=== PATIENT | female | born 1960 | race Hispanic/Latino ===

== ENCOUNTER 2017-05-15 05:57 | Day surgery (SDC) | payer BC ==
[~2017-05-15] VITALS: Ht 154.9 cm; Wt 83.9 kg
[~2017-05-15 05:57] MED LIST: BACTRIM DS1 TAB PO; CIPRO500 MG OR; CIPROFLOXACN500 MG PO; KEFLEX500 M1 PO; LEVOTHROID50 MCG PO; LEVOTHYROXIN75 MCG PO; LIPITOR10 M1 PO; LORTAB 7.5 PO; MEDDOSEPAK PO; MUCINEX D1 TAB PO; PHENTERMINE H37.5 MG PO; PRAVASTATIN20 MG PO; PROLIA SC; ROBITUSSIN AC10 ML PO; STERAPRED DS10 MG OR; XGEVA SC; [UNRECOGNIZED DRUG - OTHER]
[2017-05-15 08:44] VITALS: BP 113/58
== END 2017-05-15 09:03 | disposition home or self-care (01) | DRG 951 ==
LOC: ORM 05:57
PROVIDERS: ATTEND Surgery
PROC: 0DB68ZX Excision of Stomach, Via Natural or Artificial Opening Endoscopic, Diagnostic (ICD-10-PCS; principal; 2017-05-15)
PROC: 0DJD8ZZ Inspection of Lower Intestinal Tract, Via Natural or Artificial Opening Endoscopic (ICD-10-PCS; 2017-05-15)
DX: Z12.11 Encounter for screening for malignant neoplasm of colon (principal); R13.10 Dysphagia, unspecified; R11.10 Vomiting, unspecified; K29.50 Unspecified chronic gastritis without bleeding; K31.7 Polyp of stomach and duodenum; K25.9 Gastric ulcer, unspecified as acute or chronic, without hemorrhage or perforation; K64.8 Other hemorrhoids; E78.00 Pure hypercholesterolemia, unspecified; E03.9 Hypothyroidism, unspecified

== ENCOUNTER 2017-06-28 15:58 | Emergency (ER) | payer BC ==
[~2017-06-28] VITALS: Ht 154.9 cm; Wt 87.6 kg
[2017-06-28] MEDS ORDERED: PSEUDOEPHEDRINE30 MG PO (16:30)
[2017-06-28 17:01] LABS: INFLUENZA A NONE DETECTED (NONE DETECT); INFLUENZA B NONE DETECTED (NONE DETECT)
[2017-06-28] MEDS ORDERED: PROVENTIL HFA IN (17:11)
[2017-06-28] MEDS ORDERED: LEVAQUIN500 MG PO (17:11)
[2017-06-28] MEDS ORDERED: MEDDOSEPAK PO (17:11)
[2017-06-28 17:29] VITALS: BP 136/78
== END 2017-06-28 17:31 | disposition home or self-care (01) | DRG 153 ==
LOC: ED 15:58
PROVIDERS: Emergency Medicine
DX: J32.0 Chronic maxillary sinusitis (principal); J06.9 Acute upper respiratory infection, unspecified; R05 Cough; R50.9 Fever, unspecified; R09.81 Nasal congestion

== ENCOUNTER → 2018-06-05 | Outpatient (REF) | payer BC ==
[~2018-06-05] MED LIST changes: +LEVAQUIN500 MG PO; +PROVENTIL HFA IN; +PSEUDOEPHEDRINE30 MG PO
== END | disposition home or self-care (01) | DRG 552 ==
LOC: DI 12:11
PROVIDERS: ATTEND Nurse Practitioner Family
DX: M54.5 Low back pain (principal)

== ENCOUNTER 2020-01-07 08:27 | Emergency (ER) | payer BC ==
[~2020-01-07] VITALS: Ht 154.9 cm; Wt 90.0 kg
[2020-01-07] MEDS ORDERED: HYDROCO/APAP1 TA9 PO (09:46)
[2020-01-07] MEDS ORDERED: MOTRIN400 MG PO (09:46)
[2020-01-07 10:16] VITALS: BP 140/66
== END 2020-01-07 10:35 | disposition home or self-care (01) | DRG 563 ==
LOC: ED 08:27
PROC: 2W3SX1Z Immobilization of Right Foot using Splint (ICD-10-PCS; principal; 2020-01-07)
DX: S92.354A Nondisplaced fracture of fifth metatarsal bone, right foot, initial encounter for closed fracture (principal); S80.02XA Contusion of left knee, initial encounter; E03.9 Hypothyroidism, unspecified; W01.0XXA Fall on same level from slipping, tripping and stumbling without subsequent striking against object, initial encounter; Y92.009 Unspecified place in unspecified non-institutional (private) residence as the place of occurrence of the external cause
CPT/HCPCS: L1830

== ENCOUNTER 2022-05-27 12:15 | Emergency (ER) | payer BC ==
[~2022-05-27] VITALS: Ht 154.9 cm; Wt 100.0 kg
[~2022-05-27 12:15] MED LIST changes: +HYDROCO/APAP1 TA9 PO; +MOTRIN400 MG PO
[2022-05-27 13:16] VITALS: BP 118/57
[2022-05-27 13:27] VITALS: BP 118/57
== END 2022-05-27 13:29 | disposition home or self-care (01) | DRG 125 ==
LOC: ED 12:15
DX: H11.32 Conjunctival hemorrhage, left eye (principal); E03.9 Hypothyroidism, unspecified

== ENCOUNTER 2024-03-19 14:04 | Emergency (ER) | payer OTHER, BC ==
[~2024-03-19] VITALS: Ht 154.9 cm; Wt 100.0 kg
[2024-03-19 14:10] VITALS: BP 152/82
[2024-03-19 14:16] VITALS: BP 135/63
[2024-03-19 14:30] VITALS: BP 133/64
[2024-03-19 14:45] VITALS: BP 125/68
[2024-03-19] MEDS ORDERED: NAPROXEN500 MG PO (14:49)
[2024-03-19 15:00] VITALS: BP 117/65
== END 2024-03-19 15:10 | disposition home or self-care (01) | DRG 563 ==
LOC: ED 14:04
DX: S93.401A Sprain of unspecified ligament of right ankle, initial encounter (principal); X50.0XXA Overexertion from strenuous movement or load, initial encounter; Y93.89 Activity, other specified; Y92.219 Unspecified school as the place of occurrence of the external cause; Y99.0 Civilian activity done for income or pay